=== PATIENT | male | born 1995 | race Caucasian/White ===

== ENCOUNTER 2024-06-24 06:17 | Day surgery (SDC) | payer OTHER ==
[~2024-06-24] VITALS: Ht 167.6 cm; Wt 109.0 kg
[~2024-06-24 06:17] MED LIST: NS 1,000 ML IV ONE
[2024-06-24] MEDS ORDERED: LOSA25 PO (06:37)
[2024-06-24] MEDS ORDERED: Adipex-P37.5 M1 PO (06:37)
[2024-06-24] MEDS ORDERED: DESVENLAFAXINE100 MG PO (06:39)
[2024-06-24] MEDS ORDERED: ABILIFY MYCITE10 M2 PO (06:39)
[2024-06-24] MEDS ORDERED: DEPO-TESTO200 MG/1 M (06:41)
[2024-06-24] MEDS ORDERED: KENALOG-8080 MG/1 ML (06:43)
[2024-06-24] MEDS ORDERED: Lactated Ringer's 1,000 ML IV ONE (06:45)
[2024-06-24] MEDS ORDERED: EPINEPhrine HCl 1 MG/ML 1ML Amp ONE (06:56)
[2024-06-24] MEDS ORDERED: Lidocaine 1%-Epineph 1:100000 20 ML MDV ONE (06:57)
[2024-06-24] MEDS ORDERED: Midazolam HCl 1MG / ML 2ML Vial ONE (07:04)
[2024-06-24] MEDS ORDERED: Bupivacaine 0.5% HCl 5 MG/ML 30MLVIAL ONE (07:04)
[2024-06-24] MEDS ORDERED: propofoL 20 ML IV ONE (07:04)
[2024-06-24] MEDS ORDERED: CeFAZolin Sodium 2,000 MG VIAL ONE (07:08)
[2024-06-24] MEDS ORDERED: Tranexamic Acid 100 ML IV ONE (07:08)
--- NOTE | 2024-06-24 07:15 | NUR ---
06/24/[address] IN TO DO BLOCK. VENICE GOMEZ TO ASSIST.
[2024-06-24 07:30] LABS: Albumin/Globulin Ratio 1.2 (0.8-1.8); Bilirubin, Total 0.3 mg/dL (0.1-1.0); Calcium, Blood 9.2 mg/dL (8.5-10.1); Creatinine, Blood 1.1 mg/dL (0.60-1.20); Globulin, Blood 3.3 g/dL (2.2-4.0); Potassium, Blood 3.8 mmol/L (3.5-5.5); Total Protein, Blood 7.3 g/dL (6.4-8.2)
[2024-06-24] MEDS ORDERED: EPINEPhrine HCl 1 MG/ML 1ML Amp XX ONE (07:56)
[2024-06-24] MEDS ORDERED: Dexamethasone Sod Phos 10 MG/ML 1ML VIAL ONE (08:00)
[2024-06-24] MEDS ORDERED: Ketorolac Tromethamine 30mg Vial ONE (08:00)
[2024-06-24] MEDS ORDERED: Ondansetron HCl 2 MG / ML 2ML Vial ONE ×2 (08:00→10:51)
[2024-06-24] MEDS ORDERED: Sugammadex Sodium 200 MG/2ML SDV (100 MG/ML) ONE (08:12)
[2024-06-24] MEDS ORDERED: Labetalol HCL 5 MG/ML 4ML Injection (Single Dose) ONE (08:12)
--- NOTE | 2024-06-24 10:38 | NUR ---
06/24/24 Paula Byers PT SLEEPING UPON ARRIVAL TO PACU. 1 CLEAR COLORED PIERCING NOTED TO RIGHT EAR, 1 CLEAR COLORED PIERCING ON LEFT CHEEK AND 2 PIERCINGS IN LEFT EAR, LOWER PIERCING IS CLEAR COLORED AND UPPER PIERCING IS BLUE COLORED
--- NOTE | 2024-06-24 11:01 | NUR ---
06/24/24 1101 Paula Fletcher PT REPORTED NAUSEA, ZOFRAN GIVEN AT [id number]
--- NOTE | 2024-06-24 11:23 | NUR ---
06/24/24 [facility] STARTED TXA/ANTIBIOTICS
[2024-06-24 11:34] VITALS: BP 126/80
== END 2024-06-24 12:14 | disposition home or self-care (01) ==
LOC: ORSCSDS 06:17
PROVIDERS: Orthopaedic Surgery Sports Medicine
PROC: 0RQJ4ZZ Repair Right Shoulder Joint, Percutaneous Endoscopic Approach (ICD-10-PCS; principal; 2024-06-24 07:30)
DX: M24.311 Pathological dislocation of right shoulder, not elsewhere classified (principal); I10 Essential (primary) hypertension; K76.0 Fatty (change of) liver, not elsewhere classified; F31.9 Bipolar disorder, unspecified; F17.290 Nicotine dependence, other tobacco product, uncomplicated; G47.33 Obstructive sleep apnea (adult) (pediatric); Z79.899 Other long term (current) drug therapy; E66.9 Obesity, unspecified; Z68.36 Body mass index [BMI] 36.0-36.9, adult
CPT/HCPCS: 80053; 93005; 93010; C1713; J0171; J0690; J1100; J1885; J2250; J2405; J2704; J7030